=== PATIENT | female | born 2000 | race Caucasian/White ===

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

== ENCOUNTER → 2021-03-25 | Outpatient (CLI) | payer OTHER | LOC: M WUC 08:45 | PROVIDERS: ATTEND Physician Assistant | DX: Z02.5 Encounter for examination for participation in sport (principal) ==

== ENCOUNTER → 2022-07-28 | Outpatient (CLI) | payer OTHER ==
[2022-07-28 18:33] LABS: HEPATITIS B SURFACE ANTIGEN NEGATIVE (NEGATIVE)
[2022-07-28 18:44] LABS: HIV 1&2 SCREEN CENTAUR NEGATIVE (NEGATIVE)
[2022-07-28 18:52] LABS: HEPATITIS B CORE ANTIBODY IGM NEGATIVE (NEGATIVE); HEPATITIS C VIRUS ABY INDEX 0.1 INDEX (<0.8)
== END ==
LOC: M PLALAB 14:30
PROVIDERS: ATTEND Physician Assistant
DX: L40.3 Pustulosis palmaris et plantaris (principal)

== ENCOUNTER → 2023-06-28 | Outpatient (REF) | payer OTHER | LOC: M SFHCDERM 16:17 | PROVIDERS: ATTEND Physician Assistant | DX: B35.3 Tinea pedis (principal) ==

== ENCOUNTER → 2024-03-20 | Outpatient (REF) | payer OTHER | LOC: M SFHCDERM 09:42 | PROVIDERS: ATTEND Physician Assistant | DX: L40.3 Pustulosis palmaris et plantaris (principal); Z79.899 Other long term (current) drug therapy ==

== ENCOUNTER → 2025-03-24 | Outpatient (REF) | payer OTHER | LOC: M SFHCDERM 17:28 | PROVIDERS: ATTEND Physician Assistant | DX: L40.9 Psoriasis, unspecified (principal) ==